=== PATIENT | male | born 1955 | race Caucasian/White ===

== ENCOUNTER 2016-05-18 11:07 | Day surgery (SDC) | payer BC ==
--- NOTE | ~2016-05-18 | EGD ---
EGD REPORT [facility] 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 Procedure: Pre-Anesthesia Assessment: - ASA Grade Assessment: III - A patient with severe systemic disease. After obtaining informed consent, the endoscope was passed under direct vision. Throughout the procedure, the patient's blood pressure, pulse, and oxygen saturations were monitored continuously. The GIF [id number] was introduced through the mouth, and advanced to the third part of duodenum. The upper GI endoscopy was accomplished without difficulty. The patient tolerated the procedure. Findings: The examined esophagus was normal. A medium-sized, fungating, infiltrative and ulcerated, partially circumferential mass with no bleeding was found at the gastroesophageal junction. Biopsies were taken with a cold forceps for histology. The examined duodenum was normal. Impression: - Normal esophagus. 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 Biopsied. - Normal examined duodenum. Recommendation: - Await pathology results. 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 [address] NAME: STEPHIE VELASCO : [birth year] STATUS : REG [facility]#: [id number] AGE: 61 ADM/REG DATE : 05/18/16 MR#: [id number] REPORT SERV DATE: 05/18/16 DICTATED BY: HAIM ALCANTAR. DATE: 05/18/16 REPORT STATUS : Draft TRANSCRIBED BY: [employer] DATE: 05/18/16 R63.4, Abnormal weight loss CPT copyright 2013 [employer]. All rights reserved. The codes documented in this report are preliminary and upon mold designer review may be revised to meet current compliance requirements. HAIM ALCANTAR MD 05/18/2016 1:28 PM This report has been signed electronically. Number of Addenda: 0 Note Initiated On: 05/18/2016 1:07 PM Scope Withdrawal Time 0 hours 0 minutes 0 seconds [id number] [facility] [id number]
[~2016-05-18 11:07] MED LIST: MULTIPLE VIT PO; NORCO1 TA1 PO; NORCO1 TA2 PO; PERCOCET1 TA2 PO; PROTONIX PO; SUCR PO; ZOFRAN ODT4 MG PO
[2016-09-05] MEDS ORDERED: [UNRECOGNIZED DRUG - OTHER] PO (12:21)
[2016-09-05] MEDS ORDERED: LEXAPRO20 PO (13:11)
[2016-09-05] MEDS ORDERED: MULTIPLE VIT PO (13:11)
[2016-09-05] MEDS ORDERED: ATV.5 PO (13:12)
[2016-09-05] MEDS ORDERED: HYDROCHLOROT12.5 MG PO (13:13)
[2016-09-05] MEDS ORDERED: OXYCOD PO (13:18)
== END 2016-05-18 23:59 | disposition home or self-care (01) ==
LOC: DMU 11:07
PROVIDERS: Internal Medicine Gastroenterology
PROC: 0DB48ZX Excision of Esophagogastric Junction, Via Natural or Artificial Opening Endoscopic, Diagnostic (ICD-10-PCS; principal; 2016-05-18 12:30)
DX: C16.0 Malignant neoplasm of cardia (principal); C78.7 Secondary malignant neoplasm of liver and intrahepatic bile duct; C79.51 Secondary malignant neoplasm of bone; I10 Essential (primary) hypertension; G62.2 Polyneuropathy due to other toxic agents; T45.1X5A Adverse effect of antineoplastic and immunosuppressive drugs, initial encounter; M17.0 Bilateral primary osteoarthritis of knee; Z79.899 Other long term (current) drug therapy; Z98.890 Other specified postprocedural states
CPT/HCPCS: 88305